=== PATIENT | female | born 1965 | race Caucasian/White ===

== ENCOUNTER 2017-11-19 16:00 | Emergency (ER) | payer MEDICARE ==
[2017-11-19] MEDS ORDERED: Sodium Chloride 0.9% 10 ML Syringe FLUSH PRN (16:24)
[2017-11-19] MEDS ORDERED: Ondansetron 4 MG/2 ML SDV IVPUSH ONE (16:25)
[2017-11-19] MEDS ORDERED: HYDROmorphone 1 MG/ML Syringe IVPUSH ONE ×2 (16:26→17:19)
[2017-11-19] MEDS ORDERED: Lactated Ringers 1,000 ML IV SCH (16:30)
[2017-11-19 17:03] LABS: CHLORIDE,CL 105 mmol/L (98-107); SODIUM,NA 142 mmol/L (136-145)
[2017-11-19] MEDS ORDERED: Lactated Ringers 1,000 ML IV ONE (17:20)
[2017-11-19] MEDS ORDERED: Ketorolac 30 MG/ML SDV IVPUSH ONE (17:20)
[2017-11-19 17:56] VITALS: BP 158/78
[2017-11-19] MEDS ORDERED: Take Home: Ondansetron 4 MG Tab.DIS, 2 Tab Pack PO ONE (18:12)
--- NOTE | 2017-11-19 19:07 | EDM.PDOC ---
ED HPI GENERAL MEDICAL PROBLEM - General Chief Complaint: Abdominal Pain Time Seen by Provider: 11/19/17 16:15 Source of Information: Reports: Patient History Limitations: Reports: No Limitations - History of Present Illness INITIAL COMMENTS - FREE TEXT/NARRATIVE: Pt. presents to ER with complaints of nausea, vomiting, diarrhea, and abdominal pain. She states that she did have some fever as well the day before. Pt. states that she has a history of MS. She has been unable to take any of her medications for the past 2 days due to vomiting. She denies any bloody stools. No hematochezia. States that no one else in her house has been ill either. She states that she is passing gas and states that her bowels are hyperactive. Onset: Today Onset Date: 11/19/17 Onset Time: 16:05 Location: Reports: Abdomen Associated Symptoms: Reports: Fever/Chills, Nausea/Vomiting Abdomen Pain Score (Numeric/FACES): 4 - Related Data Allergies Allergy/AdvReac Type Severity Reaction Status Date / Time No Known Allergies Allergy Verified 11/19/17 17:03 Home Meds: Home Meds Baclofen [Lioresal] 10 mg PO BID 05/02/16 [History] Baclofen [Lioresal] 20 mg PO DAILY@199905/02/16 [History] Carboxymethyl/Glycerin/Poly80 [Refresh Optive Advanced Drops] 1 - 2 drop EYEBOTH ASDIRECTED 05/02/16 [History] Cholecalciferol (Vitamin D3) [Vitamin D3] 2,000 unit PO DAILY 05/02/16 [History] DULoxetine [Cymbalta] 60 mg PO DAILY 05/02/16 [History] Dimethyl Fumarate [Tecfidera] 240 mg PO BID 05/02/16 [History] Docusate Sodium/Sennosides [Senna Plus] 1 tab PO BID PRN 05/02/16 [History] Ferrous Sulfate 325 mg PO BID 05/02/16 [History] Gabapentin [Neurontin] 300 mg PO TID 05/02/16 [History] Hydrocodone/Acetaminophen [[place] 10-325] 1 tab PO Q4H PRN 05/02/16 [History] Ibuprofen [Advil] 200 mg PO Q4H PRN 05/02/16 [History] Lisinopril 10 mg PO DAILY 05/02/16 [History] Multivitamin [Gummi Bear Multivitamin] 1 tab PO DAILY 05/02/16 [History] OXcarbazepine [Trileptal] 300 mg PO BID 05/02/16 [History] Ondansetron HCl [Zofran] 4 mg PO Q6H PRN 05/02/16 [History] Propranolol [Inderal LA] 1 cap PO DAILY 05/02/16 [History] Propylene Glycol/Peg 400 [Systane 0.3-0.4% Eye Drops] 1 drop EYEBOTH ASDIRECTED PRN 05/02/16 [History] SUMAtriptan Succinate [Imitrex] 50 mg PO Q2H PRN 05/02/16 [History] tiZANidine HCl [Zanaflex] 2 mg PO BEDTIME 05/02/16 [History] Pantoprazole [ProTONIX] 40 mg PO DAILY 11/19/17 [History] Phentermine HCl 0.25 tab PO Q48H 11/19/17 [History] Pregabalin [Lyrica] 75 mg PO BID 11/19/17 [History] Zonisamide 150 mg PO BID 11/19/17 [History] buPROPion HCl [Wellbutrin SR] 200 mg PO BEDTIME 11/19/17 [History] buPROPion [Wellbutrin SR] 100 mg PO BEDTIME 11/19/17 [History] Past Medical History HEENT History: Reports: Other (See Below) Other HEENT History: dysphonia Cardiovascular History: Reports: Heart Murmur, Hypertension Gastrointestinal History: Reports: Diverticulosis, GERD 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 MS. unsteady gait Neurological History: Reports: Headaches, Chronic, Neuropathy, Peripheral Psychiatric History: Reports: Depression Other Psychiatric History: has pain contract Endocrine/Metabolic History: Reports: Other (See Below) Other Endocrine/Metabolic History: thyroid disorder Hematologic History: Reports: Anemia, Iron Deficiency, Other (See Below) Other Hematologic History: vit d def - Past Surgical History GI Surgical History: Reports: Appendectomy Female Surgical History: Reports: Cystectomy Musculoskeletal Surgical History: Reports: Other (See Below) Social & Family History - Tobacco Use Smoking Status *Q: Never Smoker Second Hand Smoke Exposure: No - Alcohol Use Days Per Week of Alcohol Use: 1 - Recreational Drug Use Recreational Drug Use: No ED ROS GENERAL - Review of Systems Review Of Systems: See Below Constitutional: Reports: Fever, Chills HEENT: Reports: No Symptoms Respiratory: Reports: No Symptoms Cardiovascular: Reports: No Symptoms Endocrine: Reports: No Symptoms GI/Abdominal: Reports: Abdominal Pain, Diarrhea, Decreased Appetite, Flatus, Mucous in Stool, Nausea, Vomiting. Denies: Black Stool, Bloody Stool, Difficulty Swallowing, Hematemesis, Hematochezia, Melena : Reports: No Symptoms Musculoskeletal: Reports: No Symptoms Skin: Reports: No Symptoms Neurological: Reports: No Symptoms Psychiatric: Reports: No Symptoms Hematologic/Lymphatic: Reports: No Symptoms Immunologic: Reports: No Symptoms ED EXAM, GENERAL - Physical Exam Exam: See Below Exam Limited By: No Limitations General Appearance: Alert, WD/WN, No Apparent Distress Eye Exam: Bilateral Eye: EOMI, Normal Fundi, Normal Inspection, PERRL Ears: Normal External Exam, Normal Canal, Hearing Grossly Normal, Normal TMs Ear Exam: Bilateral Ear: Auricle Normal, Canal Normal, TM normal Nose: Normal Inspection, Normal Mucosa, No Blood Throat/Mouth: Normal Inspection, Normal Lips, Normal Teeth, Normal Gums, Normal Oropharynx, Normal Voice, No Airway Compromise Head: Atraumatic, Normocephalic Neck: Normal Inspection, Supple, Non-Tender, Full Range of Motion Respiratory/Chest: No Respiratory Distress, Lungs Clear, Normal Breath Sounds, No Accessory Muscle Use, Chest Non-Tender Cardiovascular: Normal Peripheral Pulses, Regular Rate, Rhythm, No Edema, No Gallop, No JVD, No Murmur, No Rub Peripheral Pulses: 4+: Radial (L), Radial (R) GI/Abdominal: Distended (Female) Exam: Deferred Rectal (Female) Exam: Deferred Back Exam: Normal Inspection, Full Range of Motion, NT Extremities: Normal Inspection, Normal Range of Motion, Non-Tender, Normal Capillary Refill, No Pedal Edema Neurological: Alert, Oriented, CN II-XII Intact, Normal Cognition, Normal Gait, Normal Reflexes, No Motor/Sensory Deficits Psychiatric: Normal Affect, Normal Mood Skin Exam: Warm, Dry, Intact, Normal Color, No Rash Lymphatic: No Adenopathy Course - Vital Signs Last Recorded V/S: Last Vital Signs Temp 36.9 C 11/19/17 16:05 Pulse 76 11/19/17 17:56 Resp 18 11/19/17 17:56 BP 158/78 H 11/19/17 17:56 Pulse Ox 97 11/19/17 17:56 - Orders/Labs/Meds Orders: Active Orders 24 hr Category Date Time Status UA W/MICROSCOPIC [URIN] Stat Lab 11/19/17 16:27 Ordered Peripheral IV Insertion Adult [OM.PC] Routine Oth 11/19/17 16:24 Ordered Labs: Laboratory Tests 11/19/17 11/19/17 11/19/17 Range/Units 16:36 16:36 16:36 WBC 4.2 (4.0-10.0) x10^3/uL RBC 3.80 L (4.00-5.50) x10^6/uL Hgb 9.8 L (12.0-16.0) g/dL Hct 30.3 L (33.0-47.0) % MCV 79.7 (78.0-93.0) fL MCH 25.8 L (26.0-32.0) pg MCHC 32.3 (32.0-36.0) g/dL RDW Coeff of Jace 15.7 H (10.0-15.0) % Plt Count 337 (130-400) x10^3/uL Neut % (Auto) 72.0 (50.0-80.0) % Lymph % (Auto) 8.5 L (25.0-50.0) % [place] % (Auto) 18.4 H (2.0-11.0) % Eos % (Auto) 0.9 (0.0-4.0) % Baso % (Auto) 0.2 (0.2-1.2) % PT 10.4 (9.8-11.8) SEC INR 1.0 L (2.0-3.5) Sodium 142 (136-145) mmol/L Potassium 3.8 (3.5-5.1) mmol/L Chloride 105 (98-107) mmol/L Carbon Dioxide 21 (21-32) mmol/L Anion Gap 19.8 (10-20) mmol/L BUN 10 (7-18) mg/dL Creatinine 0.8 (0.55-1.02) mg/dL Est Cr Clr Drug Dosing TNP Estimated GFR (MDRD) > 60 Glucose 101 (74-106) mg/dL Calcium 9.0 (8.5-10.1) mg/dL Corrected Calcium 9.32 (8.5-10.1) mg/dL Phosphorus 3.5 (2.6-4.7) mg/dL Magnesium 1.5 L (1.8-2.4) mg/dL Total Bilirubin 0.3 (0.2-1.0) mg/dL AST 23 (15-37) U/L ALT 28 (14-59) U/L Alkaline Phosphatase 88 (46-116) U/L Creatine Kinase (26-192) U/L C-Reactive Protein 2.4 H (<=0.9) mg/dL Total Protein 7.3 (6.4-8.2) g/dL Albumin 3.6 (3.4-5.0) g/dL Globulin 3.7 Albumin/Globulin Ratio 0.97 / Range/Units 16:36 WBC (4.0-10.0) x10^3/uL RBC (4.00-5.50) x10^6/uL Hgb (12.0-16.0) g/dL Hct (33.0-47.0) % MCV (78.0-93.0) fL MCH (26.0-32.0) pg MCHC (32.0-36.0) g/dL RDW Coeff of Jace (10.0-15.0) % Plt Count (130-400) x10^3/uL Neut % (Auto) (50.0-80.0) % Lymph % (Auto) (25.0-50.0) % [place] % (Auto) (2.0-11.0) % Eos % (Auto) (0.0-4.0) % Baso % (Auto) (0.2-1.2) % PT (9.8-11.8) SEC INR (2.0-3.5) Sodium (136-145) mmol/L Potassium (3.5-5.1) mmol/L Chloride (98-107) mmol/L Carbon Dioxide (21-32) mmol/L Anion Gap (10-20) mmol/L BUN (7-18) mg/dL Creatinine (0.55-1.02) mg/dL Est Cr Clr Drug Dosing Estimated GFR (MDRD) Glucose (74-106) mg/dL Calcium (8.5-10.1) mg/dL Corrected Calcium (8.5-10.1) mg/dL Phosphorus (2.6-4.7) mg/dL Magnesium (1.8-2.4) mg/dL Total Bilirubin (0.2-1.0) mg/dL AST (15-37) U/L ALT (14-59) U/L Alkaline Phosphatase (46-116) U/L Creatine Kinase 92 (26-192) U/L C-Reactive Protein (<=0.9) mg/dL Total Protein (6.4-8.2) g/dL Albumin (3.4-5.0) g/dL Globulin Albumin/Globulin Ratio Meds: Medications Discontinued Medications Generic Name Dose Route Start Last Admin Trade Name Freq PRN Reason Stop Dose Admin Hydromorphone HCl 1 mg 11/19/17 16:26 11/19/17 16:35 Dilaudid IVPUSH 11/19/17 16:27 1 mg ONETIME ONE Administration Hydromorphone HCl 1 mg 11/19/17 17:19 11/19/17 17:32 Dilaudid IVPUSH 11/19/17 17:20 1 mg ONETIME ONE Administration Lactated Ringer's 1,000 mls @ 500 mls/hr 11/19/17 16:30 11/19/17 16:25 Ringers, Lactated IV 500 mls/hr ASDIRECTED SOPHIA Administration Lactated Ringer's 1,000 mls @ 1,000 mls/hr 11/19/17 17:20 11/19/17 17:31 Ringers, Lactated IV 11/19/17 18:19 1,000 mls/hr .BOLUS ONE Administration Ketorolac Tromethamine 30 mg 11/19/17 17:20 11/19/17 17:29 Toradol IVPUSH 11/19/17 17:21 30 mg ONETIME ONE Administration Ondansetron HCl 4 mg 11/19/17 16:25 11/19/17 16:37 Zofran IVPUSH 11/19/17 16:26 4 mg ONETIME ONE Administration Ondansetron HCl 1 packet 11/19/17 18:12 11/19/17 18:21 Take Home: Ondansetron Odt 4 Mg, 2 Tab Pack PO 11/19/17 18:13 1 packet ONETIME ONE Administration Sodium Chloride 10 ml 11/19/17 16:24 Saline Flush FLUSH ASDIRECTED PRN Keep Vein Open Departure - Departure Time of Disposition: 18:30 Disposition: Home, Self-Care 01 Clinical Impression: Gastroenteritis - Discharge Information Instructions: Ondansetron oral dissolving tablet, Viral Gastroenteritis, Adult , [id number] Referrals: Abhishek Currie MD [Primary Care Provider] - Forms: ED Department Discharge Additional Instructions: Home to rest. Zofran 4mg every 6-8 hours for nausea. Drink plenty of fluids starting tomorrow. Return to ER if you have worsening discomfort, fever, chills, lightheadedness or chest pain. Follow-up with Dr. Currie in the next 7-10 days. - My Orders Last 24 Hours: My Active Orders 11/19/17 16:24 Peripheral IV Insertion Adult [OM.PC] Routine 11/19/17 16:27 UA W/MICROSCOPIC [URIN] Stat - Assessment/Plan Last 24 Hours: My Active Orders 11/19/17 16:24 Peripheral IV Insertion Adult [OM.PC] Routine 11/19/17 16:27 UA W/MICROSCOPIC [URIN] Stat
== END 2017-11-19 18:30 | disposition home or self-care (01) ==
LOC: VM.ED 16:00
DX: K52.9 Noninfective gastroenteritis and colitis, unspecified (principal); I10 Essential (primary) hypertension; Z79.899 Other long term (current) drug therapy
CPT/HCPCS: 36415; 80053; 82550; 83735; 84100; 85025; 85610; 86140; 96361; 96374; 96375; 96376; 99284; 99284-GF; A9270-GY; J1170; J1885; J2405; J7120

== ENCOUNTER 2017-11-20 15:15 | Observation (INO) | payer MEDICARE ==
--- NOTE | 2017-11-20 15:48 | EDM.PDOC ---
ED HPI GENERAL MEDICAL PROBLEM - General Chief Complaint: Gastrointestinal Problem Stated Complaint: STOMACH PAINS Time Seen by Provider: 11/20/17 15:16 Source of Information: Reports: Patient, Old Records, RN, RN Notes Reviewed History Limitations: Reports: No Limitations - History of Present Illness INITIAL COMMENTS - FREE TEXT/NARRATIVE: Patient presents to the ED at [facility] complaining of severe lower left abdominal pain that started a couple days ago. Patient has had on/off fevers with chills. She has been very nauseated with vomiting. She has not been able to take her medications due to the vomiting. Patient was seen in this ER yesterday for the same symptoms. She was given 2 mg of IV Dilaudid, 4 mg Zofran, Toradol, and 2 L of fluid. No imaging studies were performed. Lab work was essentially normal; Mag was low at 1.5. Patient was diagnosed with Viral Gastroenteritis and sent home with a prescription for Zofran. Patient states the pain has never really went away since she was discharge. Her symptoms have persisted and progressively gotten worse. She states the pain is located LLQ and is sharp and stabbing. No blood in stools. She denies any UTI symptoms. No recent abdominal surgeries. 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) - Related Data Allergies Allergy/AdvReac Type Severity Reaction Status Date / Time No Known Allergies Allergy Verified 11/20/17 18:11 Home Meds: Home Meds Baclofen [Lioresal] 10 mg PO BID 05/02/16 [History] Baclofen [Lioresal] 20 mg PO DAILY@199905/02/16 [History] Carboxymethyl/Glycerin/Poly80 [Refresh Optive Advanced Drops] 1 - 2 drop EYEBOTH ASDIRECTED 05/02/16 [History] Cholecalciferol (Vitamin D3) [Vitamin D3] 2,000 unit PO DAILY 05/02/16 [History] DULoxetine [Cymbalta] 60 mg PO DAILY 05/02/16 [History] Dimethyl Fumarate [Tecfidera] 240 mg PO BID 05/02/16 [History] Docusate Sodium/Sennosides [Senna Plus] 1 tab PO BID PRN 05/02/16 [History] Ferrous Sulfate 325 mg PO BID 05/02/16 [History] Gabapentin [Neurontin] 300 mg PO TID 05/02/16 [History] Hydrocodone/Acetaminophen [[place] 10-325] 1 tab PO Q4H PRN 05/02/16 [History] Ibuprofen [Advil] 200 mg PO Q4H PRN 05/02/16 [History] Lisinopril 10 mg PO DAILY 05/02/16 [History] Multivitamin [Gummi Bear Multivitamin] 1 tab PO DAILY 05/02/16 [History] OXcarbazepine [Trileptal] 300 mg PO BID 05/02/16 [History] Ondansetron HCl [Zofran] 4 mg PO Q6H PRN 05/02/16 [History] Propranolol [Inderal LA] 1 cap PO DAILY 05/02/16 [History] Propylene Glycol/Peg 400 [Systane 0.3-0.4% Eye Drops] 1 drop EYEBOTH ASDIRECTED PRN 05/02/16 [History] SUMAtriptan Succinate [Imitrex] 50 mg PO Q2H PRN 05/02/16 [History] tiZANidine HCl [Zanaflex] 2 mg PO BEDTIME 05/02/16 [History] Pantoprazole [ProTONIX] 40 mg PO DAILY 11/19/17 [History] Phentermine HCl 0.25 tab PO Q48H 11/19/17 [History] Pregabalin [Lyrica] 75 mg PO BID 11/19/17 [History] Zonisamide 150 mg PO BID 11/19/17 [History] buPROPion HCl [Wellbutrin SR] 200 mg PO BEDTIME 11/19/17 [History] buPROPion [Wellbutrin SR] 100 mg PO BEDTIME 11/19/17 [History] Past Medical History HEENT History: Reports: Other (See Below) Other HEENT History: dysphonia Cardiovascular History: Reports: Heart Murmur, Hypertension Gastrointestinal History: Reports: Diverticulosis, 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 MS. unsteady gait Neurological History: Reports: Headaches, Chronic, Neuropathy, Peripheral Psychiatric History: Reports: Depression Other Psychiatric History: has pain contract Endocrine/Metabolic History: Reports: Other (See Below) Other Endocrine/Metabolic History: thyroid disorder Hematologic History: Reports: Anemia, Iron Deficiency, Other (See Below) Other Hematologic History: vit d def - Past Surgical History GI Surgical History: Reports: Appendectomy Female Surgical History: Reports: Cystectomy Musculoskeletal Surgical History: Reports: Other (See Below) Social & Family History - Tobacco Use Smoking Status *Q: Never Smoker Second Hand Smoke Exposure: No - Alcohol Use Days Per Week of Alcohol Use: 1 - Recreational Drug Use Recreational Drug Use: No ED ROS GENERAL - Review of Systems Review Of Systems: See Below Constitutional: Reports: Fever, Chills, Weakness, Decreased Appetite Respiratory: Denies: Shortness of Breath, Cough Cardiovascular: Denies: Chest Pain, Palpitations GI/Abdominal: Reports: Abdominal Pain, Distension, Nausea, Vomiting. Denies: Black Stool, Bloody Stool, Diarrhea Skin: Reports: No Symptoms Neurological: Reports: No Symptoms. Denies: Dizziness, Headache ED EXAM, GENERAL - Physical Exam Exam: See Below Exam Limited By: No Limitations General Appearance: Alert, Moderate Distress Respiratory/Chest: No Respiratory Distress, Lungs Clear, Normal Breath Sounds Cardiovascular: Normal Peripheral Pulses, Regular Rate, Rhythm Peripheral Pulses: 2+: Radial (L), Radial (R) GI/Abdominal: Soft, Rigid (LLQ), Tender (LLQ), Abnormal Bowel Sounds (Hypoactive ) Neurological: Alert, Oriented Skin Exam: Warm, Dry, Intact, Normal Color Course - Vital Signs Last Recorded V/S: Last Vital Signs Temp 36.0 C 11/20/17 17:35 Pulse 77 11/20/17 17:35 Resp 16 11/20/17 17:35 BP 160/82 H 11/20/17 17:35 Pulse Ox 100 11/20/17 17:35 - Orders/Labs/Meds Orders: Active Orders 24 hr Category Date Time Status Abdomen Pelvis w Cont [CT] Stat Exams 11/20/17 15:57 Taken Head wo Cont [CT] Stat Exams 11/20/17 17:20 Taken UA W/MICROSCOPIC [URIN] Stat Lab 11/20/17 16:00 Ordered Sodium Chloride 0.9% [Saline Flush] Med 11/20/17 15:55 Active 10 ml FLUSH ASDIRECTED PRN Peripheral IV Insertion Adult [OM.PC] Routine Oth 11/20/17 15:55 Ordered Medication Orders Lactated Ringer's (Ringers, Lactated) 1,000 mls @ 999 mls/hr IV ONETIME ONE Stop: 11/20/17 18:30 Last Admin: 11/20/17 17:45 Dose: 999 mls/hr Sodium Chloride (Saline Flush) 10 ml FLUSH ASDIRECTED PRN PRN Reason: Keep Vein Open Labs: Laboratory Tests 11/20/17 11/20/17 11/20/17 Range/Units 16:15 16:15 16:15 WBC 9.3 (4.0-10.0) x10^3/uL RBC 3.99 L (4.00-5.50) x10^6/uL Hgb 10.4 L (12.0-16.0) g/dL Hct 32.1 L (33.0-47.0) % MCV 80.5 (78.0-93.0) fL MCH 26.1 (26.0-32.0) pg MCHC 32.4 (32.0-36.0) g/dL RDW Coeff of Jace 16.0 H (10.0-15.0) % Plt Count 338 (130-400) x10^3/uL Neut % (Auto) 81.0 H (50.0-80.0) % Lymph % (Auto) 5.6 L (25.0-50.0) % [place] % (Auto) 13.0 H (2.0-11.0) % Eos % (Auto) 0.3 (0.0-4.0) % Baso % (Auto) 0.1 L (0.2-1.2) % Sodium 145 (136-145) mmol/L Potassium 3.9 (3.5-5.1) mmol/L Chloride 108 H (98-107) mmol/L Carbon Dioxide 23 (21-32) mmol/L Anion Gap 17.9 (10-20) mmol/L BUN 13 (7-18) mg/dL Creatinine 0.9 (0.55-1.02) mg/dL Est Cr Clr Drug Dosing TNP Estimated GFR (MDRD) > 60 Glucose 108 H (74-106) mg/dL Lactic Acid 1.3 (0.4-2.0) mmol/L Calcium 9.0 (8.5-10.1) mg/dL Corrected Calcium 9.32 (8.5-10.1) mg/dL Phosphorus 3.7 (2.6-4.7) mg/dL Magnesium 1.5 L (1.8-2.4) mg/dL Total Bilirubin 0.2 (0.2-1.0) mg/dL AST 26 (15-37) U/L ALT 32 (14-59) U/L Alkaline Phosphatase 86 (46-116) U/L C-Reactive Protein 1.5 H (<=0.9) mg/dL Total Protein 7.4 (6.4-8.2) g/dL Albumin 3.6 (3.4-5.0) g/dL Globulin 3.8 Albumin/Globulin Ratio 0.95 Amylase 27 (25-115) U/L Lipase 246 (73-393) U/L Meds: Medications Generic Name Dose Route Start Last Admin Trade Name Freq PRN Reason Stop Dose Admin Lactated Ringer's 1,000 mls @ 999 mls/hr 11/20/17 17:30 11/20/17 17:45 Ringers, Lactated IV 11/20/17 18:30 999 mls/hr ONETIME ONE Administration Sodium Chloride 10 ml 11/20/17 15:55 Saline Flush FLUSH ASDIRECTED PRN Keep Vein Open Discontinued Medications Generic Name Dose Route Start Last Admin Trade Name Freq PRN Reason Stop Dose Admin Hydromorphone HCl 2 mg 11/20/17 15:56 11/20/17 16:07 Dilaudid IVPUSH 11/20/17 15:57 2 mg ONETIME ONE Administration Lactated Ringer's 1,000 mls @ 999 mls/hr 11/20/17 15:56 11/20/17 16:06 Ringers, Lactated IV 11/20/17 16:56 999 mls/hr ONETIME ONE Administration Ondansetron HCl 4 mg 11/20/17 15:56 11/20/17 16:11 Zofran IVPUSH 11/20/17 15:57 4 mg ONETIME ONE Administration - Radiology Interpretation Free Text/Narrative:: CT Abd/Pelvis: no acute findings CT Head: no evidence of acute intracranial process See scanned reports in EMR CT Results Date: 11/20/17 CT Results Time: 16:30 Departure - Departure Time of Disposition: 17:25 Disposition: Refer to Observation Condition: Fair Clinical Impression: Uncontrolled pain, Dehydration Abdominal pain Qualifiers: Abdominal location: left lower quadrant Qualified Code(s): R10.32 - Left lower quadrant pain Nausea & vomiting Qualifiers: Vomiting type: unspecified Vomiting Intractability: non-intractable Qualified Code(s): R11.2 - Nausea with vomiting, unspecified - Discharge Information ED Communication - ED Communication Date/Time Date: 11/20/17 Time Called: 17:15 - Discussed Case With (1) Discussed Case With (1): Inpatient Contract Admin Person/s Notified (1): Daniella Sheppard - Conversation Summary Contract Admin Accepted Inpatient Consultation: No Patient Aware of Amendments fo Care Plan: Yes Summary Comment: Patient will be admitted observation - Problem List Review Problem List Initiated/Reviewed/Updated: Yes - My Orders Last 24 Hours: My Active Orders 11/20/17 15:55 Sodium Chloride 0.9% [Saline Flush] 10 ml FLUSH ASDIRECTED PRN Peripheral IV Insertion Adult [OM.PC] Routine 11/20/17 15:57 Abdomen Pelvis w Cont [CT] Stat 11/20/17 16:00 UA W/MICROSCOPIC [URIN] Stat 11/20/17 17:20 Head wo Cont [CT] Stat - Assessment/Plan Admission H&P: Please use this note as an admission H&P Last 24 Hours: My Active Orders 11/20/17 15:55 Sodium Chloride 0.9% [Saline Flush] 10 ml FLUSH ASDIRECTED PRN Peripheral IV Insertion Adult [OM.PC] Routine 11/20/17 15:57 Abdomen Pelvis w Cont [CT] Stat 11/20/17 16:00 UA W/MICROSCOPIC [URIN] Stat 11/20/17 17:20 Head wo Cont [CT] Stat Assessment:: Abdominal Pain, unknown etiology Uncontrolled Pain Dehydration N/V Plan: Patient will be admitted to the observation unit at [facility] for further workup and care.
[2017-11-20] MEDS ORDERED: Sodium Chloride 0.9% 10 ML Syringe FLUSH PRN (15:55)
[2017-11-20] MEDS ORDERED: Ondansetron 4 MG/2 ML SDV IVPUSH ONE (15:56)
[2017-11-20] MEDS ORDERED: Lactated Ringers 1,000 ML IV ONE ×2 (15:56→17:30)
[2017-11-20] MEDS ORDERED: HYDROmorphone 1 MG/ML Syringe IVPUSH ONE ×2 (15:56→21:12)
[2017-11-20 16:44] LABS: CHLORIDE,CL 108 mmol/L (98-107); SODIUM,NA 145 mmol/L (136-145)
[2017-11-20] MEDS ORDERED: Magnesium Sulfate/Water 2 GM in Premix Bag 1 BAG IV ONE (18:18)
[2017-11-20] MEDS ORDERED: Acetaminophen 325 MG Tab PO PRN (18:21)
[2017-11-20] MEDS ORDERED: Polyethylene Glycol 3350 Powder 17 GM Packet PO PRN (18:21)
[2017-11-20] MEDS ORDERED: Magnesium Hydroxide 400 MG/5 ML Susp 30 ML Cup PO PRN (18:21)
[2017-11-20] MEDS: Lactated Ringers 1,000 ML IV SCH (18:51)
[2017-11-20] MEDS: Metoclopramide 10 MG/2 ML SDV IV SCH (18:51)
--- NOTE | 2017-11-20 19:33 | PCM.HP ---
H&P History of Present Illness - General Date of Service: 11/20/17 Admit Problem/Dx: Admission Diagnosis/Problem Admission Diagnosis/Problem Abdominal pain Dehydration Uncontrolled Pain Nausea and Vomiting Source of Information: Patient, Family, Old Records, RN, RN Notes Reviewed History Limitations: Reports: No Limitations - History of Present Illness Initial Comments - Free Text/Narative: Patient presented to the ED ambulatory earlier this evening complaining of a headache after she fell at home in the shower. She also had severe LLQ abdominal pain with concurrent nausea and vomiting. Patient had been seen in the ER a day earlier for the nausea and vomiting. She was diagnosed with viral gastroenteritis and sent home. Patient stated she continue to have GI issues after she was discharged from the ER. No chest pain or SOB. Patient did hit her head when she fell in the shower at home. No focal neurological deficits. No diarrhea. Patient has not taken her MS meds over the past 3 days due to N/V. Onset of Symptoms: Reports: Gradual Symptom Onset Date: 11/17/17 Duration of Symptoms: Reports: Waxing/Waning Location: Reports: Abdomen (LLQ) Quality: Reports: Sharp, Stabbing, Throbbing Severity: Severe Improves with: Reports: None Worsens with: Reports: Movement Context: Denies: Sick Contact, Trauma, Travel Associated Symptoms: Reports: Fever/Chills, Nausea/Vomiting Middle Abdominal Pain Score (Numeric/FACES): 8 Headache Pain Score (Numeric/FACES): 5 - Related Data Allergies/Adverse Reactions: Allergies Allergy/AdvReac Type Severity Reaction Status Date / Time No Known Allergies Allergy Verified 11/20/17 18:11 Home Medications: Home Meds Baclofen [Lioresal] 10 mg PO BID 05/02/16 [History] Baclofen [Lioresal] 20 mg PO DAILY@199905/02/16 [History] Carboxymethyl/Glycerin/Poly80 [Refresh Optive Advanced Drops] 1 - 2 drop EYEBOTH ASDIRECTED 05/02/16 [History] Cholecalciferol (Vitamin D3) [Vitamin D3] 2,000 unit PO DAILY 05/02/16 [History] DULoxetine [Cymbalta] 60 mg PO DAILY 05/02/16 [History] Dimethyl Fumarate [Tecfidera] 240 mg PO BID 05/02/16 [History] Docusate Sodium/Sennosides [Senna Plus] 1 tab PO BID PRN 05/02/16 [History] Ferrous Sulfate 325 mg PO BID 05/02/16 [History] Gabapentin [Neurontin] 300 mg PO TID 05/02/16 [History] Hydrocodone/Acetaminophen [[place] 10-325] 1 tab PO Q4H PRN 05/02/16 [History] Ibuprofen [Advil] 200 mg PO Q4H PRN 05/02/16 [History] Lisinopril 10 mg PO DAILY 05/02/16 [History] Multivitamin [[place] Multivitamin] 1 tab PO DAILY 05/02/16 [History] OXcarbazepine [Trileptal] 300 mg PO BID 05/02/16 [History] Ondansetron HCl [Zofran] 4 mg PO Q6H PRN 05/02/16 [History] Propranolol [Inderal LA] 120 mg PO DAILY 05/02/16 [History] Propylene Glycol/Peg 400 [Systane 0.3-0.4% Eye Drops] 1 drop EYEBOTH ASDIRECTED PRN 05/02/16 [History] SUMAtriptan Succinate [Imitrex] 50 mg PO Q2H PRN 05/02/16 [History] tiZANidine HCl [Zanaflex] 2 mg PO BEDTIME 05/02/16 [History] Pantoprazole [ProTONIX] 40 mg PO DAILY 11/19/17 [History] Phentermine HCl 18.75 mg PO Q48H 11/19/17 [History] Pregabalin [Lyrica] 75 mg PO BID 11/19/17 [History] Zonisamide 150 mg PO BID 11/19/17 [History] buPROPion HCl [Wellbutrin SR] 200 mg PO DAILY 11/19/17 [History] buPROPion [Wellbutrin SR] 100 mg PO BEDTIME 11/19/17 [History] Past Medical History HEENT History: Reports: Other (See Below) Other HEENT History: dysphonia Cardiovascular History: Reports: Heart Murmur, Hypertension Gastrointestinal History: Reports: Diverticulosis, GERD 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 MS. unsteady gait Neurological History: Reports: Headaches, Chronic, Neuropathy, Peripheral Psychiatric History: Reports: Depression Other Psychiatric History: has pain contract Endocrine/Metabolic History: Reports: Other (See Below) Other Endocrine/Metabolic History: thyroid disorder Hematologic History: Reports: Anemia, Iron Deficiency, Other (See Below) Other Hematologic History: vit d def - Past Surgical History GI Surgical History: Reports: Appendectomy Female Surgical History: Reports: Cystectomy Musculoskeletal Surgical History: Reports: Other (See Below) Social & Family History - Family History Family Medical History: Noncontributory - Tobacco Use Smoking Status *Q: Never Smoker Years of Tobacco use: 25 Used Tobacco, but Quit: Yes Month/Year Tobacco Last Used: 1999 Second Hand Smoke Exposure: No - Alcohol Use Days Per Week of Alcohol Use: 1 - Recreational Drug Use Recreational Drug Use: No H&P Review of Systems - Review of Systems: Review Of Systems: See Below General: Reports: Fever, Chills, Decreased Appetite. Denies: Weakness Pulmonary: Denies: Shortness of Breath, Cough Cardiovascular: Denies: Chest Pain, Palpitations Gastrointestinal: Reports: Abdominal Pain, Nausea, Vomiting. Denies: Black Stool, Bloody Stool, Diarrhea Genitourinary: Reports: No Symptoms Skin: Reports: No Symptoms Neurological: Reports: No Symptoms. Denies: Dizziness, Headache Exam - Exam Exam: See Below - Vital Signs Vital Signs: Last Vital Signs Temp 36.0 C 11/20/17 17:35 Pulse 77 11/20/17 17:35 Resp 16 11/20/17 17:35 BP 160/82 H 11/20/17 17:35 Pulse Ox 100 11/20/17 18:21 Weight: 72.575 kg - Exam General: Alert, Cooperative, Moderate Distress Lungs: Clear to Auscultation, Normal Respiratory Effort, Decreased Breath Sounds Cardiovascular: Regular Rate, Regular Rhythm GI/Abdominal Exam: Soft, Guarding, Rigid, Abnormal Bowel Sounds (Hypoactive) Peripheral Pulses: 2+: Radial (L), Radial (R) Skin: Warm, Dry, Intact Neuro Extensive - Mental Status: Alert, Oriented x3 - Patient Data Lab Results Last 24 hrs: Laboratory Results - last 24 hr 11/20/17 11/20/17 11/20/17 Range/Units 16:15 16:15 16:15 WBC 9.3 (4.0-10.0) x10^3/uL RBC 3.99 L (4.00-5.50) x10^6/uL Hgb 10.4 L (12.0-16.0) g/dL Hct 32.1 L (33.0-47.0) % MCV 80.5 (78.0-93.0) fL MCH 26.1 (26.0-32.0) pg MCHC 32.4 (32.0-36.0) g/dL RDW Coeff of Jace 16.0 H (10.0-15.0) % Plt Count 338 (130-400) x10^3/uL Neut % (Auto) 81.0 H (50.0-80.0) % Lymph % (Auto) 5.6 L (25.0-50.0) % [place] % (Auto) 13.0 H (2.0-11.0) % Eos % (Auto) 0.3 (0.0-4.0) % Baso % (Auto) 0.1 L (0.2-1.2) % Sodium 145 (136-145) mmol/L Potassium 3.9 (3.5-5.1) mmol/L Chloride 108 H (98-107) mmol/L Carbon Dioxide 23 (21-32) mmol/L Anion Gap 17.9 (10-20) mmol/L BUN 13 (7-18) mg/dL Creatinine 0.9 (0.55-1.02) mg/dL Est Cr Clr Drug Dosing TNP Estimated GFR (MDRD) > 60 Glucose 108 H (74-106) mg/dL Lactic Acid 1.3 (0.4-2.0) mmol/L Calcium 9.0 (8.5-10.1) mg/dL Corrected Calcium 9.32 (8.5-10.1) mg/dL Phosphorus 3.7 (2.6-4.7) mg/dL Magnesium 1.5 L (1.8-2.4) mg/dL Total Bilirubin 0.2 (0.2-1.0) mg/dL AST 26 (15-37) U/L ALT 32 (14-59) U/L Alkaline Phosphatase 86 (46-116) U/L C-Reactive Protein 1.5 H (<=0.9) mg/dL Total Protein 7.4 (6.4-8.2) g/dL Albumin 3.6 (3.4-5.0) g/dL Globulin 3.8 Albumin/Globulin Ratio 0.95 Amylase 27 (25-115) U/L Lipase 246 (73-393) U/L Result Diagrams: 11/21/17 06:45 11/21/17 06:45 *Q Meaningful Use (ADM) - VTE *Q VTE Criteria *Q: Patient is not at risk for falls - Problem List (1) Abdominal pain SNOMED Code(s): 15577609 ICD Code: R10.9 - UNSPECIFIED ABDOMINAL PAIN Status: Acute Priority: Medium Current Visit: Yes Onset Date: ~11/18/17 Qualifiers: Abdominal location: left lower quadrant Qualified Code(s): R10.32 - Left lower quadrant pain (2) Dehydration SNOMED Code(s): 21565319 ICD Code: E86.0 - DEHYDRATION Status: Acute Priority: Medium Current Visit: Yes (3) Nausea & vomiting SNOMED Code(s): 50529960 ICD Code: R11.2 - NAUSEA WITH VOMITING, UNSPECIFIED Status: Acute Priority: Medium Current Visit: Yes Qualifiers: Vomiting type: unspecified Vomiting Intractability: non-intractable Qualified Code(s): R11.2 - Nausea with vomiting, unspecified (4) Uncontrolled pain SNOMED Code(s): 34618782555379750 ICD Code: R52 - PAIN, UNSPECIFIED Status: Acute Priority: Low Current Visit: Yes Problem List Initiated/Reviewed/Updated: Yes Orders Last 24hrs: Active Orders 24 hr Category Date Time Status Patient Status [ADT] Routine ADT 11/20/17 18:21 Active Intake and Output [RC] 06,18 Care 11/20/17 18:22 Active May Shower [RC] 08,20 Care 11/20/17 18:21 Active Oxygen Therapy [RC] .PRN Care 11/20/17 18:21 Active Up With Assistance [RC] 08,20 Care 11/20/17 18:21 Active VTE/DVT Education [RC] .PRN Care 11/20/17 18:21 Active Vital Signs [RC] 02,06,10,14,18,22 Care 11/20/17 18:21 Active Consult to Case Management [CONS] Routine Cons 11/20/17 18:21 Active Clear Liquid Diet [DIET] Diet 11/20/17 Breakfast Active Abdomen Pelvis w Cont [CT] Stat Exams 11/20/17 15:57 Taken Head wo Cont [CT] Stat Exams 11/20/17 17:20 Taken BASIC METABOLIC PANEL,BMP [CHEM] Routine Lab 11/21/17 05:11 Ordered CBC WITH AUTO DIFF [HEME] Routine Lab 11/21/17 05:11 Ordered MAGNESIUM [CHEM] Routine Lab 11/21/17 05:11 Ordered UA W/MICROSCOPIC [URIN] Stat Lab 11/20/17 16:00 Ordered Acetaminophen [Tylenol] Med 11/20/17 18:21 Active 650 mg PO Q4H PRN Lactated Ringers [Ringers, Lactated] 1,000 ml Med 11/20/17 18:30 Active IV ASDIRECTED Magnesium Hydroxide [Milk of Magnesia] Med 11/20/17 18:21 Active 30 ml PO Q12H PRN Magnesium Sulfate/Water [Magnesium Sulfate 2 GM in Med 11/20/17 18:18 Active Water 50 ML] 2 gm Premix Bag 1 bag IV ONETIME Metoclopramide [Reglan] Med 11/20/17 18:30 Active 10 mg IV Q6H Morphine Med 11/20/17 18:21 Active 2 mg IVPUSH Q2H PRN Ondansetron [Zofran ODT] Med 11/20/17 18:19 Active 4 mg PO Q6H PRN Polyethylene Glycol 3350 [MiraLAX] Med 11/20/17 18:21 Active 17 gm PO DAILY PRN Sodium Chloride 0.9% [Saline Flush] Med 11/20/17 15:55 Active 10 ml FLUSH ASDIRECTED PRN Antiembolic Hose [OM.PC] Per Unit Routine Oth 11/20/17 18:22 Ordered Peripheral IV Insertion Adult [OM.PC] Routine Oth 11/20/17 15:55 Ordered Resuscitation Status Routine Resus Stat 11/20/17 18:21 Ordered Medication Orders Acetaminophen (Tylenol) 650 mg PO Q4H PRN PRN Reason: Pain (Mild 1-3)/fever Magnesium Sulfate 2 gm/ Premix 50 mls @ 25 mls/hr IV ONETIME ONE Stop: 11/20/17 20:17 Last Admin: 11/20/17 18:57 Dose: 25 mls/hr Lactated Ringer's (Ringers, Lactated) 1,000 mls @ 125 mls/hr IV ASDIRECTED [facility] Last Admin: 11/20/17 18:51 Dose: 125 mls/hr Magnesium Hydroxide (Milk Of Magnesia) 30 ml PO Q12H PRN PRN Reason: Constipation Metoclopramide HCl (Reglan) 10 mg IV Q6H [facility] Stop: 11/21/17 12:31 Last Admin: 11/20/17 18:51 Dose: 10 mg Morphine Sulfate (Morphine) 2 mg IVPUSH Q2H PRN PRN Reason: Pain (severe 7-10) Ondansetron HCl (Zofran Odt) 4 mg PO Q6H PRN PRN Reason: Nausea/Vomiting Polyethylene Glycol (Miralax) 17 gm PO DAILY PRN PRN Reason: Constipation Sodium Chloride (Saline Flush) 10 ml FLUSH ASDIRECTED PRN PRN Reason: Keep Vein Open Assessment/Plan Comment:: 52 year old female patient with a past medical history of MS is admitted to the observation unit for headaches, abdominal pain, N/V, and dehydration. CT scan of abdomen was essentially normal. Labs unremarkable. May has a slight UTI. Head CT normal. Will start IVF and pain medication. May consider starting abx therapy is abdominal pain continues. Restart home medications. I do not think the patient will be admitted >48 hours. Full code. DVT prophylaxis with early ambulation. Will recheck labs in the AM. IV pain meds.
[2017-11-20] MEDS: Morphine 2 MG/ML Syringe IVPUSH PRN ×2 (20:04→20:09)
[2017-11-20] MEDS: Ondansetron 4 MG Tab.DIS PO PRN (20:11)
[2017-11-21] MEDS: Metoclopramide 10 MG/2 ML SDV IV SCH ×3 (00:42→11:57)
[2017-11-21] MEDS: Morphine 2 MG/ML Syringe IVPUSH PRN ×2 (00:44→04:07)
[2017-11-21] MEDS: Lactated Ringers 1,000 ML IV SCH (03:00)
[2017-11-21] MEDS ORDERED: diphenhydrAMINE 50 MG/ML SDV IVPUSH ONE (05:30)
[2017-11-21] MEDS ORDERED: Haloperidol Lactate 5 MG/ML SDV IV ONE (05:30)
[2017-11-21] MEDS ORDERED: Ketorolac 30 MG/ML SDV IVPUSH ONE (05:30)
[2017-11-21 07:10] LABS: CHLORIDE,CL 108 mmol/L (98-107); SODIUM,NA 144 mmol/L (136-145)
[2017-11-21] MEDS ORDERED: SUMAtriptan 50 MG Tab PO PRN (07:42)
[2017-11-21] MEDS ORDERED: Pregabalin 25 MG Cap PO SCH (08:00)
[2017-11-21] MEDS ORDERED: Propranolol 60 MG Cap.ER PO SCH (08:00)
[2017-11-21] MEDS ORDERED: TECFIDERA 240 MG PO SCH (08:00)
[2017-11-21] MEDS ORDERED: Pantoprazole 40 MG Tab.CR PO SCH (08:00)
[2017-11-21] MEDS ORDERED: Lisinopril 10 MG Tab PO SCH (08:00)
[2017-11-21] MEDS ORDERED: OXcarbazepine 300 MG Tab PO SCH (08:00)
[2017-11-21] MEDS ORDERED: Zonisamide 50 MG Capsule PO SCH (08:00)
[2017-11-21] MEDS: Gabapentin 300 MG Cap PO SCH ×2 (08:40→17:19)
[2017-11-21] MEDS: DULoxetine 60 MG Cap PO SCH ×2 (08:40→08:54)
[2017-11-21] MEDS: Baclofen 10 MG Tab PO SCH ×2 (08:41→17:19)
[2017-11-21] MEDS: Ferrous Sulfate 325 MG Tab PO SCH ×2 (08:41→08:50)
[2017-11-21] MEDS: buPROPion 100 MG Tab.SR PO SCH ×2 (08:41→08:54)
[2017-11-21] MEDS: Ondansetron 4 MG Tab.DIS PO PRN (08:59)
--- NOTE | 2017-11-21 11:28 | PCM.PN ---
- General Info Date of Service: 11/21/17 Admission Dx/Problem (Free Text): Pt. was admitted for a closed head injury post fall. CT was negative. Pt. continues to experience severe headache and continued nausea and vomiting. She denies any chest pain or shortness of breath. Staff states that pt. has been extremely lethargic. She has been sleeping most of the time. Denies any focal abdominal pain. CT abd/pelvis with contrast was negative. Functional Status: Reports: Ambulating (has not ambulated yet), Other (headache) - Review of Systems General: Reports: No Symptoms HEENT: Reports: No Symptoms Pulmonary: Reports: No Symptoms Cardiovascular: Reports: No Symptoms Gastrointestinal: Reports: No Symptoms Genitourinary: Reports: No Symptoms Musculoskeletal: Reports: No Symptoms Skin: Reports: No Symptoms Neurological: Reports: No Symptoms Psychiatric: Reports: No Symptoms - Patient Data Vitals - Most Recent: Last Vital Signs Temp 36.6 C 11/21/17 09:02 Pulse 80 11/21/17 09:02 Resp 18 11/21/17 09:02 BP 167/78 H 11/21/17 09:02 Pulse Ox 100 11/21/17 09:02 Weight - Most Recent: 72.575 kg I&O - Last 24 Hours: Intake & Output 11/20/17 11/21/17 11/21/17 22:59 06:59 14:59 Intake Total 2930 352 Output Total 700 1100 200 Balance -700 1830 152 Lab Results Last 24 Hours: Laboratory Results - last 24 hr 11/20/17 11/20/17 11/20/17 Range/Units 16:00 16:15 16:15 WBC 9.3 (4.0-10.0) x10^3/uL RBC 3.99 L (4.00-5.50) x10^6/uL Hgb 10.4 L (12.0-16.0) g/dL Hct 32.1 L (33.0-47.0) % MCV 80.5 (78.0-93.0) fL MCH 26.1 (26.0-32.0) pg MCHC 32.4 (32.0-36.0) g/dL RDW Coeff of Jace 16.0 H (10.0-15.0) % Plt Count 338 (130-400) x10^3/uL Neut % (Auto) 81.0 H (50.0-80.0) % Lymph % (Auto) 5.6 L (25.0-50.0) % [place] % (Auto) 13.0 H (2.0-11.0) % Eos % (Auto) 0.3 (0.0-4.0) % Baso % (Auto) 0.1 L (0.2-1.2) % Sodium 145 (136-145) mmol/L Potassium 3.9 (3.5-5.1) mmol/L Chloride 108 H (98-107) mmol/L Carbon Dioxide 23 (21-32) mmol/L Anion Gap 17.9 (10-20) mmol/L BUN 13 (7-18) mg/dL Creatinine 0.9 (0.55-1.02) mg/dL Est Cr Clr Drug Dosing TNP Estimated GFR (MDRD) > 60 Glucose 108 H (74-106) mg/dL Lactic Acid (0.4-2.0) mmol/L Calcium 9.0 (8.5-10.1) mg/dL Corrected Calcium 9.32 (8.5-10.1) mg/dL Phosphorus 3.7 (2.6-4.7) mg/dL Magnesium 1.5 L (1.8-2.4) mg/dL Total Bilirubin 0.2 (0.2-1.0) mg/dL AST 26 (15-37) U/L ALT 32 (14-59) U/L Alkaline Phosphatase 86 (46-116) U/L C-Reactive Protein 1.5 H (<=0.9) mg/dL Total Protein 7.4 (6.4-8.2) g/dL Albumin 3.6 (3.4-5.0) g/dL Globulin 3.8 Albumin/Globulin Ratio 0.95 Amylase 27 (25-115) U/L Lipase 246 (73-393) U/L Urine Color Yellow (YELLOW) Urine Appearance Slightly cloudy H (CLEAR) Urine pH 5.0 (5.0-8.0) Ur Specific [place] 1.010 Urine Protein Trace H (NEGATIVE) mg/dL Urine Glucose (UA) Negative (NEGATIVE) mg/dL Urine Ketones 40 H (NEGATIVE) mg/dL Urine Occult Blood Negative (NEGATIVE) Urine Nitrite Positive H (NEGATIVE) Urine Bilirubin Negative (NEGATIVE) Urine Urobilinogen 0.2 (0.2) EU/dL Ur Leukocyte Esterase Negative (NEGATIVE) Urine RBC 0-5 (NOT SEEN) /HPF Urine WBC 5-10 H (NOT SEEN) /HPF Ur Squamous Epith Cells Few H (NEGATIVE) /HPF Urine Bacteria Many H (NEGATIVE) /HPF Hyaline Casts Occasional H (NEGATIVE) /HPF Urine Mucus Few H (NEGATIVE) /LPF 11/20/17 11/21/17 11/21/17 Range/Units 16:15 06:45 06:45 WBC 5.1 (4.0-10.0) x10^3/uL RBC 3.44 L (4.00-5.50) x10^6/uL Hgb 9.0 L (12.0-16.0) g/dL Hct 28.5 L (33.0-47.0) % MCV 82.8 (78.0-93.0) fL MCH 26.2 (26.0-32.0) pg MCHC 31.6 L (32.0-36.0) g/dL RDW Coeff of Jace 15.9 H (10.0-15.0) % Plt Count 336 (130-400) x10^3/uL Neut % (Auto) 73.9 (50.0-80.0) % Lymph % (Auto) 6.0 L (25.0-50.0) % [place] % (Auto) 18.7 H (2.0-11.0) % Eos % (Auto) 1.2 (0.0-4.0) % Baso % (Auto) 0.2 (0.2-1.2) % Sodium 144 (136-145) mmol/L Potassium 3.7 (3.5-5.1) mmol/L Chloride 108 H (98-107) mmol/L Carbon Dioxide 27 (21-32) mmol/L Anion Gap 12.7 (10-20) mmol/L BUN 7 (7-18) mg/dL Creatinine 0.8 (0.55-1.02) mg/dL Est Cr Clr Drug Dosing 61.37 Estimated GFR (MDRD) > 60 Glucose 97 (74-106) mg/dL Lactic Acid 1.3 (0.4-2.0) mmol/L Calcium 8.7 (8.5-10.1) mg/dL Corrected Calcium (8.5-10.1) mg/dL Phosphorus (2.6-4.7) mg/dL Magnesium 1.8 (1.8-2.4) mg/dL Total Bilirubin (0.2-1.0) mg/dL AST (15-37) U/L ALT (14-59) U/L Alkaline Phosphatase (46-116) U/L C-Reactive Protein (<=0.9) mg/dL Total Protein (6.4-8.2) g/dL Albumin (3.4-5.0) g/dL Globulin Albumin/Globulin Ratio Amylase (25-115) U/L Lipase (73-393) U/L Urine Color (YELLOW) Urine Appearance (CLEAR) Urine pH (5.0-8.0) Ur Specific [place] Urine Protein (NEGATIVE) mg/dL Urine Glucose (UA) (NEGATIVE) mg/dL Urine Ketones (NEGATIVE) mg/dL Urine Occult Blood (NEGATIVE) Urine Nitrite (NEGATIVE) Urine Bilirubin (NEGATIVE) Urine Urobilinogen (0.2) EU/dL Ur Leukocyte Esterase (NEGATIVE) Urine RBC (NOT SEEN) /HPF Urine WBC (NOT SEEN) /HPF Ur Squamous Epith Cells (NEGATIVE) /HPF Urine Bacteria (NEGATIVE) /HPF Hyaline Casts (NEGATIVE) /HPF Urine Mucus (NEGATIVE) /LPF Med Orders - Current: Current Medications Acetaminophen (Tylenol) 650 mg PO Q4H PRN PRN Reason: Pain (Mild 1-3)/fever Baclofen (Lioresal) 10 mg PO BID@0800,1200 [facility] Last Admin: 11/21/17 08:41 Dose: 10 mg Baclofen (Lioresal) 20 mg PO DAILY@2000 [facility] Bupropion HCl (Wellbutrin Sr) 100 mg PO BEDTIME [facility] Bupropion HCl (Wellbutrin Sr) 200 mg PO DAILY [facility] Last Admin: 11/21/17 08:54 Dose: Not Given Duloxetine HCl (Cymbalta) 60 mg PO DAILY [facility] Last Admin: 11/21/17 08:54 Dose: Not Given Ferrous Sulfate (Ferrous Sulfate) 325 mg PO BID [facility] Last Admin: 11/21/17 08:50 Dose: Not Given Gabapentin (Neurontin) 300 mg PO TID [facility] Last Admin: 11/21/17 08:40 Dose: 300 mg Lisinopril (Prinivil) 10 mg PO DAILY [facility] Last Admin: 11/21/17 08:41 Dose: 10 mg Magnesium Hydroxide (Milk Of Magnesia) 30 ml PO Q12H PRN PRN Reason: Constipation Metoclopramide HCl (Reglan) 10 mg IV Q6H [facility] Stop: 11/21/17 12:31 Last Admin: 11/21/17 06:14 Dose: 10 mg Morphine Sulfate (Morphine) 2 mg IVPUSH Q2H PRN PRN Reason: Pain (severe 7-10) Last Admin: 11/21/17 04:07 Dose: 2 mg Tecfidera 240 Mg (Own Med) 240 mg PO BID [facility] Last Admin: 11/21/17 09:15 Dose: 240 mg Ondansetron HCl (Zofran Odt) 4 mg PO Q6H PRN PRN Reason: Nausea/Vomiting Last Admin: 11/21/17 08:59 Dose: 4 mg Oxcarbazepine (Trileptal) 300 mg PO BID [facility] Last Admin: 11/21/17 08:40 Dose: 300 mg Pantoprazole Sodium (Protonix) 40 mg PO ACBREAKFAST [facility] Last Admin: 11/21/17 08:41 Dose: 40 mg Polyethylene Glycol (Miralax) 17 gm PO DAILY PRN PRN Reason: Constipation Pregabalin (Lyrica) 75 mg PO BID [facility] Last Admin: 11/21/17 08:40 Dose: 75 mg Propranolol HCl (Inderal La) 120 mg PO DAILY [facility] Last Admin: 11/21/17 08:41 Dose: 120 mg Senna/Docusate Sodium (Senna Plus) 1 tab PO BID PRN PRN Reason: Constipation Sodium Chloride (Saline Flush) 10 ml FLUSH ASDIRECTED PRN PRN Reason: Keep Vein Open Last Admin: 11/21/17 06:15 Dose: 10 ml Sumatriptan Succinate (Imitrex) 50 mg PO Q2H PRN PRN Reason: Other Tizanidine HCl (Zanaflex) 2 mg PO BEDTIME [facility] Zonisamide (Zonisamide) 150 mg PO BID [facility] Discontinued Medications Diphenhydramine HCl (Benadryl) 50 mg IVPUSH ONETIME ONE Stop: 11/21/17 05:31 Haloperidol Lactate (Haldol) 2 mg IV ONETIME ONE Stop: 11/21/17 05:31 Hydromorphone HCl (Dilaudid) 2 mg IVPUSH ONETIME ONE Stop: 11/20/17 15:57 Last Admin: 11/20/17 16:07 Dose: 2 mg Hydromorphone HCl (Dilaudid) 1 mg IVPUSH ONETIME ONE Stop: 11/20/17 21:13 Last Admin: 11/20/17 21:27 Dose: 1 mg Lactated Ringer's (Ringers, Lactated) 1,000 mls @ 999 mls/hr IV ONETIME ONE Stop: 11/20/17 16:56 Last Admin: 11/20/17 16:06 Dose: 999 mls/hr Lactated Ringer's (Ringers, Lactated) 1,000 mls @ 999 mls/hr IV ONETIME ONE Stop: 11/20/17 18:30 Last Admin: 11/20/17 17:45 Dose: 999 mls/hr Magnesium Sulfate 2 gm/ Premix 50 mls @ 25 mls/hr IV ONETIME ONE Stop: 11/20/17 20:17 Last Admin: 11/20/17 18:57 Dose: 25 mls/hr Lactated Ringer's (Ringers, Lactated) 1,000 mls @ 125 mls/hr IV ASDIRECTED [facility] Last Admin: 11/21/17 03:00 Dose: 125 mls/hr Ketorolac Tromethamine (Toradol) 30 mg IVPUSH ONETIME ONE Stop: 11/21/17 05:31 Ondansetron HCl (Zofran) 4 mg IVPUSH ONETIME ONE Stop: 11/20/17 15:57 Last Admin: 11/20/17 16:11 Dose: 4 mg - Problem List Review Problem List Initiated/Reviewed/Updated: Yes - My Orders Last 24 Hours: My Active Orders 11/21/17 11:17 PT Evaluation and Treatment [CONS] Routine - Plan Plan:: 52 year old female patient with a past medical history of MS is admitted to the observation unit for headaches, abdominal pain, N/V, and dehydration. CT scan of abdomen was essentially normal. Labs unremarkable. May has a slight UTI. Head CT normal. Will start IVF and pain medication. May consider starting abx therapy is abdominal pain continues. Restart home medications. I do not think the patient will be admitted >48 hours. Full code. DVT prophylaxis with early ambulation. Will recheck labs in the AM. IV pain meds.
[2017-11-21 14:35] VITALS: BP 144/70
[2017-11-21] MEDS ORDERED: Baclofen 10 MG Tab PO SCH (20:00)
[2017-11-21] MEDS ORDERED: tiZANidine 4 MG Tab PO SCH (20:00)
[2017-11-21] MEDS ORDERED: buPROPion 100 MG Tab.SR PO SCH (20:00)
--- NOTE | 2017-11-22 12:49 | PCM.DCSUM1 ---
Discharge Summary - Hospital Course Free Text/Narrative:: Pt. was admitted with a closed head injury. She had a fall at home and struck her head. CT of her brain was negative. Pt. has a history of MS and was recently in ER with nausea, vomiting and diarrhea. She stated that she was "still feeling the effects" from that even. She states that she did not injure her neck in the fall. She states that her nausea has improved significantly. She is not experiencing any visual or gait issues since the fall. Pt. did follow the pt. and they feel as though she has returned to baseline. - Discharge Data Discharge Date: 11/21/17 Discharge Disposition: Home, Self-Care 01 Condition: Good - Discharge Diagnosis/Problem(s) (1) Closed head injury SNOMED Code(s): 900443112782 ICD Code: S09.90XA - UNSPECIFIED INJURY OF HEAD, INITIAL ENCOUNTER Status: Acute (2) Nausea & vomiting SNOMED Code(s): 04021864 ICD Code: R11.2 - NAUSEA WITH VOMITING, UNSPECIFIED Status: Acute Priority: Medium Qualifiers: Vomiting type: unspecified Vomiting Intractability: non-intractable Qualified Code(s): R11.2 - Nausea with vomiting, unspecified - Patient Summary/Data Consults: Consultations 11/20/17 18:21 Consult to Case Management [CONS] Routine 11/21/17 11:17 PT Evaluation and Treatment [CONS] Routine - Patient Instructions Diet: Regular Diet as Tolerated - Discharge Plan Home Medications: Home Meds Baclofen [Lioresal] 10 mg PO BID 05/02/16 [History] Baclofen [Lioresal] 20 mg PO DAILY@199905/02/16 [History] Carboxymethyl/Glycerin/Poly80 [Refresh Optive Advanced Drops] 1 - 2 drop EYEBOTH ASDIRECTED 05/02/16 [History] Cholecalciferol (Vitamin D3) [Vitamin D3] 2,000 unit PO DAILY 05/02/16 [History] DULoxetine [Cymbalta] 60 mg PO DAILY 05/02/16 [History] Dimethyl Fumarate [Tecfidera] 240 mg PO BID 05/02/16 [History] Docusate Sodium/Sennosides [Senna Plus] 1 tab PO BID PRN 05/02/16 [History] Ferrous Sulfate 325 mg PO BID 05/02/16 [History] Gabapentin [Neurontin] 300 mg PO TID 05/02/16 [History] Hydrocodone/Acetaminophen [[place] 10-325] 1 tab PO Q4H PRN 05/02/16 [History] Ibuprofen [Advil] 200 mg PO Q4H PRN 05/02/16 [History] Lisinopril 10 mg PO DAILY 05/02/16 [History] Multivitamin [G[place] Bear Multivitamin] 1 tab PO DAILY 05/02/16 [History] OXcarbazepine [Trileptal] 300 mg PO BID 05/02/16 [History] Ondansetron HCl [Zofran] 4 mg PO Q6H PRN 05/02/16 [History] Propranolol [Inderal LA] 120 mg PO DAILY 05/02/16 [History] Propylene Glycol/Peg 400 [Systane 0.3-0.4% Eye Drops] 1 drop EYEBOTH ASDIRECTED PRN 05/02/16 [History] SUMAtriptan Succinate [Imitrex] 50 mg PO Q2H PRN 05/02/16 [History] tiZANidine HCl [Zanaflex] 2 mg PO BEDTIME 05/02/16 [History] Pantoprazole [ProTONIX] 40 mg PO DAILY 11/19/17 [History] Phentermine HCl 18.75 mg PO Q48H 11/19/17 [History] Pregabalin [Lyrica] 75 mg PO BID 11/19/17 [History] Zonisamide 150 mg PO BID 11/19/17 [History] buPROPion HCl [Wellbutrin SR] 200 mg PO DAILY 11/19/17 [History] buPROPion [Wellbutrin SR] 100 mg PO BEDTIME 11/19/17 [History] tiZANidine [Zanaflex] 2 mg PO BEDTIME tablet 11/21/17 [Rx] Forms: ED Department Discharge Referrals: Abhishek Currie MD [Primary Care Provider] - - General Info Date of Service: 11/20/17 Functional Status: Reports: Pain Controlled, Tolerating Diet, Ambulating - Review of Systems General: Reports: No Symptoms HEENT: Reports: No Symptoms Pulmonary: Reports: No Symptoms Cardiovascular: Reports: No Symptoms Gastrointestinal: Reports: No Symptoms Genitourinary: Reports: No Symptoms Musculoskeletal: Reports: No Symptoms Skin: Reports: No Symptoms Neurological: Reports: Other (see HPI) Psychiatric: Reports: No Symptoms - Patient Data Vitals - Most Recent: Last Vital Signs Temp 36.6 C 11/21/17 14:00 Pulse 60 11/21/17 14:00 Resp 16 11/21/17 14:00 BP 144/70 H 11/21/17 14:00 Pulse Ox 96 11/21/17 14:00 Weight - Most Recent: 72.575 kg I&O - Last 24 hours: Intake & Output 11/21/17 11/22/17 11/22/17 22:59 06:59 14:59 Output Total 200 Balance -200 Med Orders - Current: Current Medications Discontinued Medications Acetaminophen (Tylenol) 650 mg PO Q4H PRN PRN Reason: Pain (Mild 1-3)/fever Baclofen (Lioresal) 10 mg PO BID@0800,1200 [facility] Last Admin: 11/21/17 17:19 Dose: Not Given Baclofen (Lioresal) 20 mg PO DAILY@2000 [facility] Bupropion HCl (Wellbutrin Sr) 100 mg PO BEDTIME [facility] Bupropion HCl (Wellbutrin Sr) 200 mg PO DAILY [facility] Last Admin: 11/21/17 08:54 Dose: Not Given Diphenhydramine HCl (Benadryl) 50 mg IVPUSH ONETIME ONE Stop: 11/21/17 05:31 Last Admin: 11/21/17 17:19 Dose: Not Given Duloxetine HCl (Cymbalta) 60 mg PO DAILY [facility] Last Admin: 11/21/17 08:54 Dose: Not Given Ferrous Sulfate (Ferrous Sulfate) 325 mg PO BID [facility] Last Admin: 11/21/17 08:50 Dose: Not Given Gabapentin (Neurontin) 300 mg PO TID [facility] Last Admin: 11/21/17 17:19 Dose: Not Given Haloperidol Lactate (Haldol) 2 mg IV ONETIME ONE Stop: 11/21/17 05:31 Last Admin: 11/21/17 17:19 Dose: Not Given Hydromorphone HCl (Dilaudid) 2 mg IVPUSH ONETIME ONE Stop: 11/20/17 15:57 Last Admin: 11/20/17 16:07 Dose: 2 mg Hydromorphone HCl (Dilaudid) 1 mg IVPUSH ONETIME ONE Stop: 11/20/17 21:13 Last Admin: 11/20/17 21:27 Dose: 1 mg Lactated Ringer's (Ringers, Lactated) 1,000 mls @ 999 mls/hr IV ONETIME ONE Stop: 11/20/17 16:56 Last Admin: 11/20/17 16:06 Dose: 999 mls/hr Lactated Ringer's (Ringers, Lactated) 1,000 mls @ 999 mls/hr IV ONETIME ONE Stop: 11/20/17 18:30 Last Admin: 11/20/17 17:45 Dose: 999 mls/hr Magnesium Sulfate 2 gm/ Premix 50 mls @ 25 mls/hr IV ONETIME ONE Stop: 11/20/17 20:17 Last Admin: 11/20/17 18:57 Dose: 25 mls/hr Lactated Ringer's (Ringers, Lactated) 1,000 mls @ 125 mls/hr IV ASDIRECTED [facility] Last Admin: 11/21/17 03:00 Dose: 125 mls/hr Ketorolac Tromethamine (Toradol) 30 mg IVPUSH ONETIME ONE Stop: 11/21/17 05:31 Last Admin: 11/21/17 17:19 Dose: Not Given Lisinopril (Prinivil) 10 mg PO DAILY [facility] Last Admin: 11/21/17 08:41 Dose: 10 mg Magnesium Hydroxide (Milk Of Magnesia) 30 ml PO Q12H PRN PRN Reason: Constipation Metoclopramide HCl (Reglan) 10 mg IV Q6H [facility] Stop: 11/21/17 12:31 Last Admin: 11/21/17 11:57 Dose: 10 mg Morphine Sulfate (Morphine) 2 mg IVPUSH Q2H PRN PRN Reason: Pain (severe 7-10) Last Admin: 11/21/17 04:07 Dose: 2 mg Tecfidera 240 Mg (Own Med) 240 mg PO BID [facility] Last Admin: 11/21/17 09:15 Dose: 240 mg Ondansetron HCl (Zofran) 4 mg IVPUSH ONETIME ONE Stop: 11/20/17 15:57 Last Admin: 11/20/17 16:11 Dose: 4 mg Ondansetron HCl (Zofran Odt) 4 mg PO Q6H PRN PRN Reason: Nausea/Vomiting Last Admin: 11/21/17 08:59 Dose: 4 mg Oxcarbazepine (Trileptal) 300 mg PO BID [facility] Last Admin: 11/21/17 08:40 Dose: 300 mg Pantoprazole Sodium (Protonix) 40 mg PO ACBREAKFAST [facility] Last Admin: 11/21/17 08:41 Dose: 40 mg Polyethylene Glycol (Miralax) 17 gm PO DAILY PRN PRN Reason: Constipation Pregabalin (Lyrica) 75 mg PO BID [facility] Last Admin: 11/21/17 08:40 Dose: 75 mg Propranolol HCl (Inderal La) 120 mg PO DAILY [facility] Last Admin: 11/21/17 08:41 Dose: 120 mg Senna/Docusate Sodium (Senna Plus) 1 tab PO BID PRN PRN Reason: Constipation Sodium Chloride (Saline Flush) 10 ml FLUSH ASDIRECTED PRN PRN Reason: Keep Vein Open Last Admin: 11/21/17 06:15 Dose: 10 ml Sumatriptan Succinate (Imitrex) 50 mg PO Q2H PRN PRN Reason: Other Tizanidine HCl (Zanaflex) 2 mg PO BEDTIME [facility] Zonisamide (Zonisamide) 150 mg PO BID [facility] Last Admin: 11/21/17 17:19 Dose: Not Given - Exam Quality Assessment: Reports: Supplemental Oxygen General: Reports: Alert, Oriented HEENT: Reports: Pupils Equal, Pupils Reactive, EOMI, Mucous Membr. Moist/[place] Neck: Reports: Supple Lungs: Reports: Clear to Auscultation, Normal Respiratory Effort Cardiovascular: Reports: Regular Rate, Regular Rhythm GI/Abdominal Exam: Normal Bowel Sounds, Non-Tender, No Organomegaly, No Distention, No Abnormal Bruit, No Mass, Pelvis Stable (Female) Exam: Deferred Rectal (Female) Exam: Deferred Back Exam: Reports: Normal Inspection, Full Range of Motion Extremities: Normal Inspection, Normal Range of Motion, Non-Tender, No Pedal Edema, Normal Capillary Refill Skin: Reports: Warm, Dry, Intact Wound/Incisions: Reports: Healing Well Neurological: Reports: Other (See HPI) Psy/Mental Status: Reports: Alert, Normal Affect
== END 2017-11-21 17:15 | disposition home or self-care (01) ==
LOC: VM.ED 15:15 → VM.MS 17:25
PROVIDERS: ADMIT Nurse Practitioner Family; ATTEND Nurse Practitioner Family
DX: S09.90XA Unspecified injury of head, initial encounter (principal); R11.2 Nausea with vomiting, unspecified; I10 Essential (primary) hypertension; K21.9 Gastro-esophageal reflux disease without esophagitis; F32.9 Major depressive disorder, single episode, unspecified; W18.09XA Striking against other object with subsequent fall, initial encounter; Y92.009 Unspecified place in unspecified non-institutional (private) residence as the place of occurrence of the external cause; Z79.899 Other long term (current) drug therapy
CPT/HCPCS: 36415; 51798; 70450; 74177; 80048; 80053; 81001; 82150; 83605; 83690; 83735; 84100; 85025; 86140; 96361; 96374; 96375; 97116; 97161; 99285; A9270; J1170; J2270; J2405; J2765; J7050; J7120; 96365; 96366; 96376; 99284-GF; G0378; J3475

== ENCOUNTER 2021-12-05 10:05 | Emergency (ER) | payer MEDICARE ==
[2021-12-05] MEDS ORDERED: Aspirin 81 MG Tab.Chew PO ONE (10:31)
[2021-12-05] MEDS: Sodium Chloride 0.9% 1,000 ML IV SCH (10:45)
[2021-12-05 10:56] LABS: PTT,PARTIAL THROMBOPLSTIN TIME 30.6 SEC (20.5-30.9)
[2021-12-05 11:24] LABS: ANION GAP 16.8 mmol/L (5-15)
[2021-12-05] MEDS: Potassium Chloride Riders 20 MEQ in Premix Bag 1 BAG IV ONE (11:40)
[2021-12-05 13:14] VITALS: BP 144/68; PULSE 66
== END 2021-12-05 13:00 | disposition home or self-care (01) ==
LOC: VM.ED 10:05
DX: U07.1 COVID-19 (principal); E86.0 Dehydration; I10 Essential (primary) hypertension; K21.9 Gastro-esophageal reflux disease without esophagitis; Z79.899 Other long term (current) drug therapy
CPT/HCPCS: 36415; 71045; 80053; 81001; 83605; 83615; 83735; 84100; 84443; 84484; 85025; 85610; 85730; 86140; 87040; 93005; 96360; 96361; 99284; 99284-25; J3480; J7030

== ENCOUNTER 2022-10-05 08:30 | Day surgery (SDC) | payer MEDICARE, OTHER ==
[~2022-10-05 08:30] MED LIST: Lactated Ringers 1,000 ML IV SCH; Sodium Chloride 0.9% 10 ML Syringe FLUSH PRN
[2022-10-05] MEDS ORDERED: fentaNYL 100 MCG/2 ML SDV ONE (09:37)
[2022-10-05] MEDS ORDERED: Propofol 200 MG/20 ML SDV ONE ×2 (09:37→10:43)
[2022-10-05] MEDS ORDERED: Ondansetron 4 MG/2 ML SDV IVPUSH PRN (12:00)
[2022-10-05 12:43] VITALS: BP 129/56; PULSE 78
== END 2022-10-05 13:48 | disposition home or self-care (01) ==
LOC: VM.SDS 08:30
PROVIDERS: ATTEND Family Medicine
DX: Z12.11 Encounter for screening for malignant neoplasm of colon (principal); D12.3 Benign neoplasm of transverse colon; K57.30 Diverticulosis of large intestine without perforation or abscess without bleeding; I10 Essential (primary) hypertension; E78.5 Hyperlipidemia, unspecified; K21.9 Gastro-esophageal reflux disease without esophagitis; F32.A Depression, unspecified; G89.4 Chronic pain syndrome; D69.6 Thrombocytopenia, unspecified; G35 Multiple sclerosis; E66.9 Obesity, unspecified; Z68.28 Body mass index [BMI] 28.0-28.9, adult; Z79.899 Other long term (current) drug therapy
CPT/HCPCS: 00812; 45380; 88305; J2405; J2704; J3010; J7120

== ENCOUNTER 2023-09-02 20:22 | Observation (INO) | payer MEDICARE, OTHER ==
[2023-09-02] MEDS ORDERED: Sodium Chloride 0.9% 10 ML Syringe FLUSH PRN (20:44)
[2023-09-02 21:00] LABS: BASOPHILS PERCENT AUTO 0.3 % (0.2-1.2); EOSINOPHILS ABSOLUTE AUTO 0.1 x10^3/uL (0.0-0.5); HEMATOCRIT 37.2 % (33.0-47.0); HEMOGLOBIN 11.8 g/dL (12.0-16.0); IMMATURE GRAN ABSOLUTE AUTO 0.03 x10^3/uL (0.00-0.07); LYMPHOCYTES ABSOLUTE AUTO 0.8 x10^3/uL (1.0-4.8); LYMPHOCYTES PERCENT AUTO 7.6 % (25.0-50.0); MEAN CORPUSCULAR HEMOGLOBIN 27.4 pg (26.0-32.0); MEAN CORPUSCULAR HGB CONC 31.7 g/dL (32.0-36.0); MEAN CORPUSCULAR VOLUME 86.3 fL (78.0-93.0); MONOCYTES ABSOLUTE AUTO 1.6 x10^3/uL (0.0-0.8); NEUTROPHILS ABSOLUTE AUTO 7.8 x10^3/uL (1.8-7.7); NEUTROPHILS PERCENT AUTO 75.3 % (50.0-80.0); PLATELET COUNT,PLT 315 x10^3/uL (130-400); RED BLOOD CELL COUNT 4.31 x10^6/uL (4.00-5.50); WHITE BLOOD CELL COUNT,WBC 10.3 x10^3/uL (4.0-10.0)
[2023-09-02] MEDS ORDERED: Sodium Chloride 0.9% 1,000 ML IV SCH (21:00)
[2023-09-02 21:07] LABS: MONOCYTES PERCENT AUTO 15.5 % (2.0-11.0)
[2023-09-02 21:18] LABS: PROTHROMBIN TIME 10.7 SEC (9.5-12.2); PTT,PARTIAL THROMBOPLSTIN TIME 24.5 SEC (23.6-33.6)
[2023-09-02 21:19] LABS: LACTIC ACID 2.1 mmol/L (0.4-2.0)
[2023-09-02] MEDS ORDERED: Naloxone 0.4 MG/ML SDV IVPUSH ONE ×3 (21:21→22:54)
[2023-09-02 21:25] LABS: A/G RATIO 1.08; ALANINE AMINOTRANSFERASE,ALT 30 U/L (14-59); ALBUMIN 3.9 g/dL (3.4-5.0); ALKALINE PHOSPHATASE 100 U/L (46-116); ANION GAP 16.3 mmol/L (5-15); ASPARTATE AMNIOTRANSFERASE,AST 23 U/L (15-37); BILIRUBIN TOTAL 0.2 mg/dL (0.2-1.0); BLOOD UREA NITROGEN,BUN 13 mg/dL (7-18); CALCIUM 8.9 mg/dL (8.5-10.1); CARBON DIOXIDE,CO2 25 mmol/L (21-32); CHLORIDE,CL 105 mmol/L (98-107); CREATININE 1.8 mg/dL (0.55-1.02); GLUCOSE RANDOM 94 mg/dL (70-99); MAGNESIUM 1.8 mg/dL (1.8-2.4); POTASSIUM,K 3.3 mmol/L (3.5-5.1); PROTEIN TOTAL,TP 7.5 g/dL (6.4-8.2); SODIUM,NA 143 mmol/L (136-145); TSH ULTRASENSITIVE 3.102 uIU/mL (0.358-3.74)
[2023-09-02 21:26] LABS: C-REACTIVE PROTEIN < 0.50 mg/dL (<=0.50); ESTIMATED GFR 32 mL/min (>=60); ETHANOL BLOOD MEDICAL < 3 mg/dL (0-3)
[2023-09-02] MEDS ORDERED: Lactated Ringers 1,000 ML IV ONE ×2 (21:41→23:10)
[2023-09-02] MEDS ORDERED: Ondansetron 4 MG/2 ML SDV IVPUSH ONE (21:52)
[2023-09-02] MEDS ORDERED: Naloxone 0.4 MG/ML SDV ONE ×2 (22:22→22:29)
[2023-09-02] MEDS ORDERED: Naloxone 0.4 MG/ML SDV IVPUSH PRN (23:06)
[2023-09-02] MEDS ORDERED: cefTRIAXone 1 GM Vial IVPUSH ONE (23:21)
[2023-09-02] MEDS ORDERED: Doxycycline Monohydrate 100 MG Cap PO SCH (23:30)
[2023-09-02] MEDS: Ondansetron 4 MG/2 ML SDV IVPUSH SCH (23:53)
[2023-09-03] MEDS: Ondansetron 4 MG/2 ML SDV IVPUSH SCH ×2 (05:01→11:44)
[2023-09-03 06:25] LABS: BILIRUBIN,URINE NEGATIVE (NEGATIVE); COLOR,URINE YELLOW (YELLOW); GLUCOSE,URINE NEGATIVE (NEGATIVE); KETONES,URINE NEGATIVE (NEGATIVE); LEUKOCYTE ESTERASE,URINE TRACE (NEGATIVE); NITRITE,URINE NEGATIVE (NEGATIVE); OCCULT BLOOD,URINE NEGATIVE (NEGATIVE); PROTEIN,URINE NEGATIVE (NEGATIVE); UROBILINOGEN,URINE 0.2 EU/dL (0.2)
[2023-09-03 06:28] LABS: AMPHETAMINES SCREEN, URINE NEGATIVE (NEGATIVE); BARBITURATE SCREEN,URINE NEGATIVE (NEGATIVE); BENZODIAZEPINES SCREEN,URINE NEGATIVE (NEGATIVE); COCAINE METABOLITES,URINE NEGATIVE (NEGATIVE); METHADONE SCREEN, URINE NEGATIVE (NEGATIVE); METHAMPHETAMINE SCREEN, URINE NEGATIVE (NEGATIVE); OXYCODONE SCREEN,URINE POSITIVE (NEGATIVE); PCP SCREEN,URINE NEGATIVE (NEGATIVE); THC SCREEN,URINE 50 NG/ML NEGATIVE (NEGATIVE)
[2023-09-03 06:29] LABS: BUPRENORPHINE SCREEN,URINE NEGATIVE (NEGATIVE)
[2023-09-03 06:32] LABS: APPEARANCE,URINE SLIGHTLY CLOUDY (CLEAR)
[2023-09-03 06:35] LABS: BACTERIA,URINE MODERATE /HPF (NOT SEEN); MUCUS,URINE OCCASIONAL /LPF (NOT SEEN); RBC,URINE 0-5 /HPF (NOT SEEN); SQUAMOUS EPITHELIAL CELLS,UR FEW /HPF (NOT SEEN); WBC,URINE 0-5 /HPF (NOT SEEN)
[2023-09-03 12:38] VITALS: BP 137/62; PULSE 85
== END 2023-09-03 13:25 | disposition home or self-care (01) ==
LOC: VM.ED 20:22 → VM.MS 21:56
PROVIDERS: ADMIT Physician Assistant; ATTEND Physician Assistant
DX: R41.82 Altered mental status, unspecified (principal); F11.93 Opioid use, unspecified with withdrawal; K21.9 Gastro-esophageal reflux disease without esophagitis; K57.30 Diverticulosis of large intestine without perforation or abscess without bleeding; I10 Essential (primary) hypertension; Z79.899 Other long term (current) drug therapy
CPT/HCPCS: 36415; 70450; 71045; 80053; 80305-QW; 80307; 81001; 81003; 82140; 83605; 83735; 84443; 84484; 85025; 85610; 85730; 86140; 87086; 87088; 87186; 93005; 96361; 96374; 96375; 96376; 99285-25; G0378; J2310; J2405; J7030; J7120

== ENCOUNTER 2024-12-31 14:53 | Inpatient (IN) | payer MEDICARE, OTHER ==
[2024-12-31] MEDS ORDERED: Ondansetron 4 MG/2 ML SDV IVPUSH PRN (15:15)
[2024-12-31] MEDS: Iopamidol 612 MG/ML 100 ML Bottle IVPUSH ONE (16:31)
[2024-12-31] MEDS: Pantoprazole 40 MG Vial IVPUSH SCH (16:34)
[2024-12-31] MEDS: cefTRIAXone 2 GM Vial IVPUSH SCH (16:48)
[2024-12-31] MEDS: Sodium Chloride 0.9% 10 ML Syringe FLUSH PRN (16:58)
[2024-12-31] MEDS: Lactated Ringers 1,000 ML IV SCH (17:00)
[2024-12-31] MEDS: Metoclopramide 10 MG/2 ML SDV IVPUSH SCH (17:02)
[2024-12-31] MEDS ORDERED: Flumazenil 0.1 MG/ML 5 ML MDV IVPUSH PRN (17:04)
[2024-12-31] MEDS ORDERED: diazePAM 10 MG/2 ML Syringe IVPUSH PRN (17:04)
[2024-12-31] MEDS: Orphenadrine 60 MG/2 ML Inj IV SCH (17:05)
[2024-12-31] MEDS ORDERED: Naloxone 0.4 MG/ML SDV IVPUSH PRN (17:07)
[2024-12-31] MEDS ORDERED: HYDROmorphone 1 MG/ML Syringe IVPUSH PRN (17:07)
[2024-12-31] MEDS ORDERED: Albuterol HFA 18 Gm Inhaler INH PRN (17:08)
[2024-12-31] MEDS: Hypromellose 0.3% Ophth Soln 15 ML Bottle EYEBOTH SCH (20:36)
[2025-01-01 07:17] LABS: BASOPHILS PERCENT AUTO 0.5 % (0.2-1.2); EOSINOPHILS ABSOLUTE AUTO 0.1 x10^3/uL (0.0-0.5); EOSINOPHILS PERCENT AUTO 0.9 % (0.0-4.0); HEMATOCRIT 40.5 % (33.0-47.0); HEMOGLOBIN 13.9 g/dL (12.0-16.0); IMMATURE GRAN ABSOLUTE AUTO 0.01 x10^3/uL (0.00-0.07); LYMPHOCYTES ABSOLUTE AUTO 0.9 x10^3/uL (1.0-4.8); LYMPHOCYTES PERCENT AUTO 14.5 % (25.0-50.0); MEAN CORPUSCULAR HGB CONC 34.3 g/dL (32.0-36.0); MEAN CORPUSCULAR VOLUME 90.2 fL (78.0-93.0); MONOCYTES ABSOLUTE AUTO 0.9 x10^3/uL (0.0-0.8); MONOCYTES PERCENT AUTO 13.4 % (2.0-11.0); NEUTROPHILS ABSOLUTE AUTO 4.5 x10^3/uL (1.8-7.7); NEUTROPHILS PERCENT AUTO 70.5 % (50.0-80.0); PLATELET COUNT,PLT 268 x10^3/uL (130-400); RED BLOOD CELL COUNT 4.49 x10^6/uL (4.00-5.50); WHITE BLOOD CELL COUNT,WBC 6.4 x10^3/uL (4.0-10.0)
[2025-01-01 08:11] LABS: A/G RATIO 1.19; ALBUMIN 3.8 g/dL (3.4-5.0); BILIRUBIN TOTAL 0.4 mg/dL (0.2-1.0); CALCIUM 8.8 mg/dL (8.5-10.1); CREATININE 0.9 mg/dL (0.55-1.02); EST CRCL DRUG DOSING (CG) 50.16 mL/min; POTASSIUM,K 3.6 mmol/L (3.5-5.1)
[2025-01-01 08:12] LABS: ANION GAP 14.6 mmol/L (5-15)
[2025-01-01] MEDS ORDERED: DULoxetine 60 MG Cap PO SCH (09:00)
[2025-01-01] MEDS: Topiramate 50 MG Tab PO SCH (10:00)
[2025-01-01] MEDS: DULoxetine 30 MG Cap PO SCH (10:00)
[2025-01-01] MEDS: Enoxaparin 40 MG/0.4 ML Syringe SUBCUT SCH (10:07)
[2025-01-01] MEDS: Baclofen 10 MG Tab PO SCH (10:10)
[2025-01-01] MEDS: Lactated Ringers 1,000 ML IV SCH ×2 (10:25→17:30)
[2025-01-01] MEDS ORDERED: Acetaminophen/HYDROcodone 325-10 MG Tab PO PRN (10:37)
[2025-01-01] MEDS: buPROPion 150 MG Tab.ER PO SCH (11:58)
[2025-01-01] MEDS: Pregabalin 50 MG Cap PO SCH (11:59)
[2025-01-01] MEDS: Propranolol 80 MG Cap.ER PO SCH (12:00)
[2025-01-01] MEDS: Pantoprazole 40 MG Vial IVPUSH SCH (18:04)
[2025-01-01 18:32] VITALS: BP 144/75; PULSE 73
[2025-01-01] MEDS ORDERED: Pregabalin 50 MG Cap PO SCH (21:00)
[2025-01-01] MEDS ORDERED: Baclofen 10 MG Tab PO SCH (21:00)
[2025-01-01] MEDS ORDERED: amLODIPine 10 MG Tab PO SCH (21:00)
== END 2025-01-01 18:52 | disposition home or self-care (01) | DRG 690 ==
LOC: VM.MS 14:53
PROVIDERS: ADMIT Nurse Practitioner Family; ATTEND Nurse Practitioner Family
DX: N30.01 Acute cystitis with hematuria (principal); F11.93 Opioid use, unspecified with withdrawal; I10 Essential (primary) hypertension; G47.30 Sleep apnea, unspecified; K21.9 Gastro-esophageal reflux disease without esophagitis; G89.29 Other chronic pain; R51.9 Headache, unspecified; G35 Multiple sclerosis; G62.9 Polyneuropathy, unspecified; F32.A Depression, unspecified; E55.9 Vitamin D deficiency, unspecified; E07.9 Disorder of thyroid, unspecified; J45.20 Mild intermittent asthma, uncomplicated; E86.0 Dehydration; D50.9 Iron deficiency anemia, unspecified; D69.6 Thrombocytopenia, unspecified; Z87.891 Personal history of nicotine dependence; Z79.899 Other long term (current) drug therapy; Z90.49 Acquired absence of other specified parts of digestive tract
CPT/HCPCS: 36415; 74177; 80053; 85025; 97165-GO; 97535-GO; A9270-GY; J0696; J1650; J2360; J2470; J2765; J7120; Q9967